=== PATIENT | female | born 1955 | race Caucasian/White ===

== ENCOUNTER → 2020-06-16 | Outpatient (CLI) | payer OTHER ==
[~2020-06-16] MED LIST: ACTIVELLA1 TAB PO; ACYCLOVIR PO; ADVAIR 100-501 EACH INH; ALEVE220 M1 PO; ATROVENT30 ML NS; B-100 COMPLEX1 EAC1 PO; BUTRANS1 EAC1 TD; CALCIUM + VITA1 EACH PO; CVS FISH OIL 11 EAC3 PO; CYMBALTA PO; DESYREL50 MG PO; DIFLUCAN150 MG PO; ESTRACE0.5 MG PO; FLONASE 0.05%50 MCG NASAL; FLONASE 0.05%50 MCG NS; HYDROCODON-ACE1 EAC7 PO; IMITREX100 MG PO; KETAMINE; LYRICA 50 MG50 MG PO; MAGOX 400400 MG PO; MULTIVITAMINS PO; NABUMETONE 750750 M1 PO; OSCIMIN0.125 MG PO; PRILOSEC 20 MG20 MG PO; PRISTIQ100 MG PO; TRAMADOL 50 MG50 MG PO; VENTOLIN17 GM INH; VITAMIN D400 UNI1 PO; VITAMINC500 PO; XANAX XR2 MG PO; XIFAXAN 200 MG200 M1 PO; ZOCOR 20 MG TAB20 M1 PO
== END ==
LOC: SJCVCIMAG 08:53
PROVIDERS: ATTEND Internal Medicine
DX: I07.1 Rheumatic tricuspid insufficiency (principal); J45.909 Unspecified asthma, uncomplicated

== ENCOUNTER → 2021-09-01 | Outpatient (CLI) | payer OTHER ==
[~2021-09-01] VITALS: Ht 170.2 cm; Wt 70.3 kg
[~2021-09-01] MED LIST changes: +ALENDRONATE SOD70 MG PO; +AZELASTINE137 MCG/0. NASAL; +ESTRACE1 MG PO; +FASENRA30 MG/1 ML SUBQ; +FLONASE 0.05%50 MCG NARES; +LORAZEPAM 0.50.5 MG PO; +PROAIR HFA8.5 GM INH; +PROGESTERONE200 MG PO; +PROTONIX40 M4 PO; +ROSUVASTATIN CA20 MG PO; +SUPER THERAVIT1 EACH PO; +SYMBICORT160 MCG/4. INH; +VITAMIN D3-CAL1 EACH PO; +XYZAL5 MG PO
[2021-09-01 08:41] VITALS: BP 147/83
--- NOTE | 2021-09-02 08:08 | HPC ---
[address] [address] PAIN MANAGEMENT CONSULTATION Name: OMER HARRINGTON Room #: REG [facility] Kiley#: [id number] Admission: 09/01/21 Attend Phys: Everett Correia DO Discharge: Date of : 51 Report #: [id number] THIS REPORT FOR: cc: Doreen Dimas MD,Everett Mercedes MD, DO ~ cc: Doreen Dimas MD DATE OF SERVICE: 09/01/2021 CHIEF COMPLAINT: Axial back pain. HISTORY OF PRESENT ILLNESS: As you know, the patient is a 65-year-old female with longstanding history of low back pain and upper buttock pain consistent with lumbar facet arthropathy. She has a fairly significant scoliotic curvature, which continues to provide discomfort on a daily basis. She has trialled conservative treatment over the years with medication management and interventional treatments in 2010 and 2011. Since that time, she has "just been putting up with it." The patient has been discussing her case with her primary care physician, Dr. Doreen Dimas, who referred the patient to our clinic after undergoing an x-ray imaging, which showed scoliotic curvature of the thoracolumbar area and the arthritic changes of the lower lumbar region. The patient reports that her pain has been present since 2006. She has participated in physical therapy in the past, both in formalized and informalized fashions with some improvement. She is taking [id number] medications with minimal benefit, but is noticing with nonsteroidal anti-inflammatories, gastric upset. She has also been attempting to continue to walk and participate in daily activities as a way to maintain health, but symptoms have progressed to the point where she is limited on her capabilities. She has been referred to our service to discuss interventional treatment options. The patient reports today her pain is continuous. She describes the pain more as a burning, crushing, and stabbing in its sensation. She places the current pain score 5/10, daily average 6/10, worst pain has been is 10+/10. The patient states her pain is exacerbated with standing, shopping, walking any distances. It improves with only Advil therapy to date. She has been referred to our service to discuss treatment options for axial back pain. PAST MEDICAL HISTORY: 1. Asthma. 2. Chronic lung disease. 3. Chronic colon problems. 4. Multiple stomach problems including GERD. 5. Degenerative joint disease. 6. Osteoarthritis. 7. Migraine headaches. 8. Fibromyalgia. [address] [address] PAIN MANAGEMENT CONSULTATION Name: OMER HARRINGTON Room #: REG [facility] Kiley#: [id number] Admission: 09/01/21 Attend Phys: Everett Correia DO Discharge: Date of : 51 Report #: [id number] PAST SURGICAL HISTORY: 1. Tonsillectomy. 2. Cholecystectomy. 3. Right total knee arthroplasty. 4. Left total knee arthroplasty. SOCIAL HISTORY: The patient denies tobacco. Denies IV or illicit drug use. Admits to one alcohol beverage per week. She is working, not receiving workmen's compensation nor she is trying to obtain disability benefits. She is not in litigation in regard to pain. She is unaccompanied at today's visit. REVIEW OF SYSTEMS: Positive for fatigue and weakness, wearing corrective eyewear, cataracts, nocturia, frequent urination, incontinence and dribbling to urine, left foot numbness and tingling, status post left total hip arthroplasty. All other review of systems negative per 12-point review of systems other than those listed in history of present illness. Pain impact score 40/70 indicating moderate interference of daily activities secondary to pain. ALLERGIES: OXYCODONE, PENICILLIN, SULFA, AND CODEINE. CURRENT MEDICATIONS: Lorazepam 0.5 mg p.o. at bedtime, pantoprazole 40 mg per day, estradiol 1 mg per day, progesterone 200 mg once a day, Xyzal 5 mg once a day, Symbicort 160/4.5 inhaled once a day, rosuvastatin 20 mg per day, multivitamin one tab per day, fluticasone 2 sprays each nostril per day, Fasenra 30 mg subcutaneous as needed, calcium carbonate one tab per day, Astelin 137 mcg one pump per day, alendronate 70 mg per week, albuterol 2 puffs q.4 h., Activelle per day, magnesium oxide 400 mg per day, Pristiq 100 mg per day, naproxen 220 mg twice a day, hyoscyamine 0.125 mg 4 times a day, estradiol 0.5 mg once a day, sumatriptan 100 mg p.r.n., alprazolam XR 2 mg p.o. at bedtime, omeprazole 20 mg per day. IMAGING: X-ray of the lumbar spine shows scoliotic curvature of the thoracolumbar area, there is severe arthritic changes at the L4-L5 and L5-S1 level. There does not appear to be any subluxations or fractures. PHYSICAL EXAM: VITAL SIGNS: Blood pressure 147/83, pulse 87, respiratory rate 16 and unlabored. The patient is 98% on room air. Height 5 feet 7 inches tall, weight 155 pounds, BMI calculated 24.3. GENERAL: Well-developed, well-nourished, well-hydrated 65-year-old female appearing stated age. Pain is rated today around 5/10. HEENT: Normocephalic, atraumatic. Pupils are equal, round and responsive to light. Extraocular muscles are intact. She is wearing a mask in compliance with COVID-19 regulations. LUNGS: Clear. No wheeze, rhonchi or rales. [facility] [address] [place] [address] PAIN MANAGEMENT CONSULTATION Name: JUANYOMERAyaz LAKE Room #: REG [facility]#: [id number] Admission: 09/01/21 Attend Phys: Everett Correia DO Discharge: Date of : 51 Report #: [id number] CARDIOVASCULAR: Regular. No appreciable gallop. No rub. ABDOMEN: Soft and nontender. EXTREMITIES: Show no clubbing, no cyanosis. No appreciable edema. MUSCULOSKELETAL: Lower extremity strength is symmetrical 5/5, intact to light touch from L1 through S2 dermatomes. Seated straight leg raising negative. Supine straight leg raising negative. Fabere's test is negative. Modified Gaenslen's is positive for axial low back pain with no radiation of symptoms. Lumbar provocation testing is met with increase in axial back pain mainly over the facet joints at L4-L5 and L5-S1. There is some myofascial tenderness to palpation consistent with her scoliotic curvature. She does have visible changes in the thoracolumbar area, once again consistent with the scoliosis. Deep tendon reflexes are symmetrical at patella and Achilles 2+/4. She is able to toe walk and heel walk with some assistance. ASSESSMENT: 1. Lumbosacral spondylosis without radiculopathy or myelopathy. 2. Severe facet arthropathy of lumbar spine. 3. Idiopathic scoliosis of the thoracolumbar area. 4. Chronic intractable pain. PLAN: Based on today's physical exam, the history the patient provides, the distribution of symptoms the patient is experiencing pain upon, and the description she uses in regard to pain, it would appear that the patient is suffering from continued lumbar and progressive lumbar facet arthropathy. The patient's scoliotic curvature does place her at higher risk of development of arthritic changes at the L4-L5 and L5-S1 level based on the mechanics of her thoracolumbar area. It is noted that the curvature itself is centered in the upper lumbar area into the lower thoracic, which is causing extreme changes in mechanics at the L4-L5 and L5-S1 level consistent with the patient's symptoms. The patient and I discussed at length today the treatment options we have for facet degenerative pain of the lumbar spine. The following was discussed with the patient today. We discussed physical therapy, stretching exercises, and core strengthening as a treatment approach. This would be done as a concerted effort in response to ongoing back issues and for the need for strengthening of the thoracolumbar area. The scoliotic curvature itself will make this more difficult process, but can be done efficiently and effectively, which might provide the patient better benefit. We discussed medication management, though the patient is having difficulty with nonsteroidal anti-inflammatories, which are the medication of choice to address facet arthropathy. 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 We discussed intra-articular facet injections, medial branch nerve blocks and radiofrequency lesioning as a treatment course to address the facet arthropathy pain in the lumbar region. We also discussed surgical options, which given the [facility] [address] [place] [address] PAIN MANAGEMENT CONSULTATION Name: OMER HARRINGTON Room #: REG CLKaylah Cao#: [id number] Admission: 09/01/21 Attend Phys: Everett Correia DO Discharge: Date of : 51 Report #: [id number] scoliotic curvature and the progression of arthritic changes at the L4-L5 and L5-S1 level may be necessary. After reviewing the risks and benefits of all proposed treatment options: 1. The patient chose to move forward with medial branch nerve blocks and radiofrequency lesioning. 2. The patient was advised, due to third constitution party payer restrictions, authorization would have to be obtained before the patient could undergo medial branch nerve blocks. We will begin that process immediately. Once we have obtained that authorization, we will have the patient return to undergo medial branch blocks. If the first set of medial branch blocks are effective at alleviating symptoms for greater than 80% for a prescribed amount of time, we would then move forward with a second in the series of injections. If these again show improvement in symptoms of greater than 80%, we would then move forward with radiofrequency lesioning in medial branch nerves, starting on the left and progressing towards the right. The patient is agreeable with this plan. We will await authorization before the patient can return to undergo medial branch blocks. 3. In regard to the patient's residual foot pain, we will start the patient on Lyrica, we will start at 50 mg tablet. She will take that for 7 nights. If no improvement in symptoms, no side effects of sleepiness, disorientation, confusion, mental slowing, then increase to 100 mg p.o. at bedtime. The patient was given a prescription of #60 tablets of the 50 mg dose of Lyrica to trial for neuropathic symptoms secondary to a known nerve injury, when the patient underwent total hip arthroplasty. Prescription was sent via e-scribe to local pharmacy. 4. We will plan to see the patient back in followup visit, once we have authorization to undergo medial branch nerve blocks to address bilateral L4-L5 facet arthropathy pain. This will be performed by blocking the L3, L4, L5 medial branch nerves bilaterally. If these are then successful, move on with radiofrequency ablation. 5. We wish to thank Dr. Doreen Dimas for the referral of this patient to our clinic. We will keep you apprised of her response to treatment as we address facet arthropathy symptoms. Again, we wish to thank you for the opportunity to see the patient in consultation. <ELECTRONICALLY SIGNED> By: Everett Correia DO 09/02/21 [id number] Everett Correia DO /nt
== END ==
LOC: PAIN 06:55
PROVIDERS: ATTEND Anesthesiology Pain Medicine
DX: M47.816 Spondylosis without myelopathy or radiculopathy, lumbar region (principal); M47.817 Spondylosis without myelopathy or radiculopathy, lumbosacral region; M41.85 Other forms of scoliosis, thoracolumbar region; G89.29 Other chronic pain; Z96.653 Presence of artificial knee joint, bilateral; Z90.49 Acquired absence of other specified parts of digestive tract; Z88.0 Allergy status to penicillin; Z88.8 Allergy status to other drugs, medicaments and biological substances; Z79.899 Other long term (current) drug therapy